=== PATIENT | male | born 2000 | race African-American/Black ===

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

== ENCOUNTER 2021-05-23 20:03 | Emergency (ER) | payer OTHER | END 2021-05-23 20:54 | disposition home or self-care (01) | LOC: BURERS 20:03 | DX: S43.401A Unspecified sprain of right shoulder joint, initial encounter (principal); V43.53XA Car driver injured in collision with pick-up truck in traffic accident, initial encounter; Y92.410 Unspecified street and highway as the place of occurrence of the external cause | CPT/HCPCS: 99283 ==

== ENCOUNTER 2021-06-16 23:52 | Emergency (ER) | payer OTHER, SELFPAY ==
[2021-06-17 00:48] LABS: Mean Corpuscular HGB CONC 33.5 g/dL (32.0-36.0); Mean Corpuscular Hemoglobin 29.8 pg (25.0-35.0); Mean Corpuscular Volume 88.8 fL (78.0-98.0); Mean Platelet Volume 5.2 fL (7.4-10.4); Platelet Count 262 thou/uL (130-400); RBC Distribution Width 12.2 % (11.5-14.5); Red Blood Cell (RBC) Count 4.36 mill/uL (4.00-5.20); White Blood Cell (WBC) Count 3.4 thou/uL (4.8-10.8)
[2021-06-17 01:00] LABS: ALT (SGPT) 11 U/L (8-55); AST (SGOT) 21 U/L (10-45); Albumin 4.4 g/dL (3.5-5.0); Alkaline Phosphatase 66 U/L (50-130); Anion Gap 13 mmol/L (10-20); BUN (Urea Nitrogen) 8 mg/dL (8.4-21.0); Bilirubin, Total 0.3 mg/dL (0.2-1.2); Calc. Creatinine Clearance 0 mL/min (70-130); Calcium 10.5 mg/dL (7.8-10.44); Carbon Dioxide 26 mmol/L (22-29); Chloride 105 mmol/L (98-107); Globulin 3.1 g/dL (2.4-3.5); Glucose 93 mg/dL (70-105); Potassium 4.1 mmol/L (3.5-5.1); Protein, Total 7.5 g/dL (6.0-8.3); Sodium 140 mmol/L (136-145)
[2021-06-17 01:46] LABS: Band 7 % (5-11); Eosinophils 4 % (0-10); Lymphocytes 28 % (28-48); MDiff Complete? YES; Monocytes 13 % (0-4); Neutrophil 48 % (31-61); Platelet Morphology Comment Appears Adequate; RBC Morphology Normal
[2021-06-17] MEDS ORDERED: Ketorolac Tromethamine 30 MG/ML VIAL ONE (02:43)
[2021-06-17] MEDS ORDERED: Iopamidol 370 76% 100 ML VIAL ONE (13:23)
== END 2021-06-17 02:49 | disposition home or self-care (01) ==
LOC: BURERS 23:52
DX: G43.909 Migraine, unspecified, not intractable, without status migrainosus (principal)
CPT/HCPCS: 70496; 80053; 85025; 96374; J1885; Q9967

== ENCOUNTER 2021-08-01 11:53 | Emergency (ER) | payer SELFPAY ==
[2021-08-01 12:29] LABS: #Eosinphils 0.1 thou/uL (0.0-0.7); #Lymphocytes 1.7 thou/uL (1.20-3.40); #Monocytes 0.4 thou/uL (0.11-0.59); #Neutrophils 2.1 thou/uL (1.40-6.50); %Eosinophils 3.3 % (0.0-10.0); %Lymphocytes 38.8 % (28.0-48.0); %Monocytes 9.8 % (0.0-4.0); %Neutrophils 47.2 % (31.0-61.0); Mean Corpuscular HGB CONC 32.3 g/dL (32.0-36.0); Mean Corpuscular Hemoglobin 28.9 pg (25.0-35.0); Mean Corpuscular Volume 89.5 fL (78.0-98.0); Mean Platelet Volume 5.2 fL (7.4-10.4); Platelet Count 353 thou/uL (130-400); RBC Distribution Width 12.4 % (11.5-14.5); Red Blood Cell (RBC) Count 4.49 mill/uL (4.00-5.20); White Blood Cell (WBC) Count 4.4 thou/uL (4.8-10.8)
[2021-08-01 12:34] LABS: Bilirubin Negative (Negative); Blood, Urine Negative (Negative); Clarity Clear (Clear); Glucose, Urine (Dipstick) Negative (Negative); Ketone, Urine Negative (Negative); Leukocyte Small (Negative); Nitrite Negative (Negative); Protein, Urine (Dipstick) Negative (Neg-Trace); Urobilinogen 0.2 mg/dL (Less than 2); pH, Urine 5.5 (5.0-9.0)
[2021-08-01 12:41] LABS: ALT (SGPT) Less than 7 U/L (8-55); AST (SGOT) 13 U/L (10-45); Albumin 4.2 g/dL (3.5-5.0); Alkaline Phosphatase 84 U/L (50-130); Anion Gap 13 mmol/L (10-20); BUN (Urea Nitrogen) 8 mg/dL (8.4-21.0); Bilirubin, Total 0.3 mg/dL (0.2-1.2); Calc. Creatinine Clearance 0 mL/min (70-130); Calcium 10.2 mg/dL (7.8-10.44); Carbon Dioxide 23 mmol/L (22-29); Chloride 105 mmol/L (98-107); Glucose 102 mg/dL (70-105); Protein, Total 7.2 g/dL (6.0-8.3); Sodium 137 mmol/L (136-145); Specific Gravity, Urine 1.033 (1.002-1.036)
[2021-08-01 12:42] LABS: Bacteria/HPF None Seen HPF (None Seen); RBC/HPF None Seen HPF (0-3); Squamous Epithelial 0-3 HPF (0-3); WBC/HPF 21-50 HPF (0-3)
[2021-08-01 12:49] LABS: Amphetamine Not Detected (NotDetected); Barbiturates Screen Not Detected (NotDetected); Benzodiazepine Screen Not Detected (NotDetected); Cocaine Metabolite Screen Not Detected (NotDetected); Medtox Control Line Valid? VALID (VALID); Methadone Not Detected (NotDetected); Methamphetamine Not Detected (NotDetected); Opiate Screen Not Detected (NotDetected); Oxycodone Screen Not Detected (NotDetected); Phencyclidine (PCP) Not Detected (NotDetected); THC/Cannabinoid Screen Not Detected (NotDetected); Tricyclic Screen Not Detected (NotDetected)
== END 2021-08-01 13:45 | disposition home or self-care (01) ==
LOC: BURERS 11:53
DX: R07.89 Other chest pain (principal); N39.0 Urinary tract infection, site not specified
CPT/HCPCS: 36415; 71046; 80053; 80306; 81003; 81015; 84484; 85025; 93005

== ENCOUNTER 2021-11-29 19:14 | Emergency (ER) | payer SELFPAY ==
[2021-11-29] MEDS ORDERED: Lidocaine Viscous Sol 2% 15 ml UD Cup ONE (20:03)
[2021-11-29] MEDS ORDERED: Mag-Al Plus 1200 MG/1200 MG/120 MG/30 ML UDCUP ONE (20:04)
== END 2021-11-29 20:00 | disposition home or self-care (01) ==
LOC: BURERS 19:14
DX: R10.13 Epigastric pain (principal)
CPT/HCPCS: 99283

== ENCOUNTER 2022-01-23 21:17 | Emergency (ER) | payer SELFPAY | END 2022-01-23 21:52 | disposition home or self-care (01) | LOC: BURERS 21:17 | DX: S61.012D Laceration without foreign body of left thumb without damage to nail, subsequent encounter (principal) ==